=== PATIENT | male | born 1945 | race Two or more races ===

== ENCOUNTER 2024-10-26 21:49 | Emergency (ER) | payer OTHER ==
[~2024-10-26] VITALS: Ht 188 cm; Wt 77.0 kg
--- NOTE | 2024-10-26 22:06 | ED.PDOC ---
History of Present Illness HPI Comments 79-year-old male who came to ER via EMS for dizziness. Per EMS, patient was picked up at home, were in family members noted the patient to be acting confused and dizzy earlier. Upon arrival of paramedics, blood pressure 92/66 mm Hg, appeared pale and dizzy. Patient claims that he feels okay, denies being dizzy or confused, but admits that he is a daily alcohol drinker (whiskey). Blood sugar on scene was 165. Chief Complaint: Dizziness Time Seen by MD: 22:05 Reviewed Notes: Nurses Notes Allergies: Coded Allergies: NO KNOWN ALLERGIES (Unverified , 10/26/24) Information Source: Patient Mode of Arrival: EMS Severity: Moderate Timing: Hours Duration: Intermittent Prehospital treatment: None Past Medical History PAST MEDICAL HISTORY: COPD, High Lipids Surgical History: Denies all surgeries Family History Family History: Reviewed,noncontributory to illness Social History Smoker: Non-Smoker Alcohol: Heavy Drugs: Denies Drug Use Lives In: Home Constitutional: denies: chills, diaphoresis, fatigue, fever, malaise, sweats, weakness, others EENTM: denies: blurred vision, double vision, ear bleeding, ear discharge, ear drainage, ear pain, ear ringing, eye pain, eye redness, hearing loss, mouth pain, mouth swelling, nasal discharge, nose bleeding, nose congestion, nose pain, photophobia, tearing, throat pain, throat swelling, voice changes, others Respiratory: denies: cough, hemoptysis, orthopnea, SOB at rest, shortness of breath, SOB with excertion, stridor, wheezing, others Cardiovascular: denies: chest pain, dizzy spells, diaphoresis, Dyspnea on exertion, edema, irregular heart beat, left arm pain, lightheadedness, palpitations, PND, syncope, others Gastrointestinal: denies: abdomen distended, abdominal pain, blood streaked bowels, constipated, diarrhea, dysphagia, difficulty swallowing, hematemesis, melena, nausea, poor appetite, poor fluid intake, rectal bleeding, rectal pain, vomiting, others Genitourinary: denies: burning, dysuria, flank pain, frequency, hematuria, incontinence, penile discharge, penile sore, pain, testicle pain, testicle swelling, urgency, others Neurological: denies: dizziness, fainting, headache, left sided numbness, left sided weakness, numbness, paresthesia, pre-existing deficit, right sided numbness, right sided weakness, seizure, speech problems, tingling, tremors, weakness, others Musculoskeletal: denies: back pain, gout, joint pain, joint swelling, muscle pain, muscle stiffness, neck pain, others Integumetry: denies: bruises, change in color, change in hair/nails, dryness, laceration, lesions, lumps, rash, wounds, others Allergic/Immunocompromised: denies: Difficulty Healing, Frequent Infections, Hives, Itching, others Hematologic/Lymphatic: denies: anemia, blood clots, easy bleeding, easy bruising, swollen glands, others Endocrine: denies: excessive hunger, excessive sweating, excessive thirst, excessive urination, flushing, intolerance to cold, intolerance to heat, un explained weight gain, unexplained weight loss, others Psychiatric: denies: anxiety, bipolar disorder, depression, hopeless, panic disorder, schizophrenia, sleepless, suicidal, others Physical Exam General Appearance: No Apparent Distress, Normal HEENT: Normal ENT Inspection, Pharynx Normal, TMs Normal Neck: Full Range of Motion, Non-Tender, Normal, Normal Inspection Respiratory: Chest Non-Tender, Lungs Clear, No Accessory Muscle Use, No Respiratory Distress, Normal Breath Sounds Cardiovascular: No Edema, No JVD, No Murmur, No Gallop, Normal Peripheral Pulses, Regular Rate/Rhythm Breast Exam: Deferred Gastrointestinal: No Organomegaly, Non Tender, No Pulsatile Mass, Normal Bowel Sounds, Soft Genitalia: Deferred Pelvic: Deferred Rectal: Deferred Extremities: No calf tenderness, Normal capillary refill, Normal inspection, Normal range of motion, Non-tender, No pedal edema Musculoskeletal : Apperance: Normal Neurologic: Alert, teacher lip reading II-XII nml as Tested, No Motor Deficits, Normal Affect, Normal Mood, No Sensory Deficits Cerebellar Function: Normal Reflexes: Normal Skin: Dry, Normal Color, Warm Lymphatic: No Adenopathy Was a procedure done? Was a procedure done?: No Differential Dx Considerations may include: Anemia, electrolyte imbalance, encephalopathy, COPD, hypotension X-Ray, Labs, Meds, VS Vital Signs Date Time Temp Pulse Resp B/P (MAP) Pulse Ox O2 Delivery O2 Flow Rate FiO2 10/26/24 22:29 94 16 120/69 (86) 96 11/28/24 21:59 97.7 97 18 108/68 (81) 93 Lab Test 10/26/24 22:02 Range/Units White Blood Count 4.8 4.4-10.8 10^3/uL Red Blood Count 4.34 L 4.5-5.90 10^6/uL Hemoglobin 16.5 13.5-17.5 g/dL Hematocrit 47.4 41.0-53.0 % Mean Corpuscular Volume 109.1 H 80.0-100.0 fL Mean Corpuscular Hemoglobin 37.9 H 28.0-32.0 pg Mean Corpuscular Hemoglobin Concent 34.7 32.0-36.0 g/dL Red Cell Distribution Width 14.5 H 11.8-14.3 % Platelet Count 177 140-450 10^3/uL Mean Platelet Volume 7.5 6.9-10.8 fL Neutrophils (%) (Auto) 41.5 37.0-80.0 % Lymphocytes (%) (Auto) 44.9 10.0-50.0 % Monocytes (%) (Auto) 8.2 0.0-12.0 % Eosinophils (%) (Auto) 3.9 0.0-7.0 % Basophils (%) (Auto) 1.5 0.0-2.0 % Neutrophils # (Auto) 2.0 1.6-8.6 10 ^3/uL Lymphocytes # (Auto) 2.1 0.4-5.4 10 ^3/uL Monocytes # (Auto) 0.4 0-1.3 10 ^3/uL Eosinophils # (Auto) 0.2 0-0.8 10 ^3/uL Basophils # (Auto) 0.1 0-0.2 10 ^3/uL Nucleated Red Blood Cells 0.1 % Sodium Level 141 136-145 mmol/L Potassium Level 3.8 3.5-5.1 mmol/L Chloride Level 104 98-107 mmol/L Carbon Dioxide Level 26 20-31 mmol/L Anion Gap 11 5-15 Blood Urea Nitrogen 14 9-23 mg/dL Creatinine 1.26 0.700-1.30 mg/dL Glomerular Filtration Rate Calc 58 >90 mL/min BUN/Creatinine Ratio 11.1 10.0-20.0 Serum Glucose 126 H 74-106 mg/dL Lactic Acid Level 3.0 *H 0.4-2.0 mmol/L Calcium Level 9.4 8.7-10.4 mg/dL Magnesium Level 1.5 L 1.6-2.6 mg/dL Total Bilirubin 1.1 H 0.2-1.0 mg/dL Aspartate Amino Transferase (AST) 101 H 13-40 U/L Alanine Aminotransferase (ALT) 72 H 7-40 U/L Alkaline Phosphatase 181 H 46-116 U/L Troponin I High Sensitivity 6 </=54 ng/L Total Protein 6.9 5.7-8.2 g/dL Albumin 4.0 3.2-4.8 g/dL Plasma/Serum Blood Alcohol 240.7 H <10 mg/dL Current Medications Medications (Trade) Dose Ordered Sig/Tong Route Start Time Stop Time Status Last Admin Sodium Chloride 500 ml @ 500 mls/hr Q1H ONCE IVB 10/26/24 22:00 10/26/24 22:59 DC 10/26/24 22:20 Piperacillin Sod/ Tazobactam Sod 100 ml @ 100 mls/hr ONCE ONCE IV 10/26/24 23:00 10/26/24 23:59 10/26/24 23:18 Time of 1ST Reevaluation: 21:59 Reevaluation 1ST: Unchanged Time of 2ND Reevaluation: 22:58 Reevaluation 2ND: Unchanged Consultation: Other (I discussed the case with [facility] Dr [facility] who will transfer for inpatient care and further workup. Auth# [id number]) Patient Education/Counseling: Diagnosis, Treatment Family Education/Counseling: Diagnosis, Treatment, No Family Present Departure 1 Departure Time of Disposition: 22:58 (I discussed the case with [facility] Dr [facility] who will transfer for inpatient care and further workup. Auth# [id number]) Impression: Primary Impression: Alcohol abuse Additional Impressions: Altered mental status Near syncope Disposition: ADMITTED INPATIENT Admit to: Med Surg Condition: Guarded Critical Care Note Critical Care Time?: Yes (35 min-critical care time only) Critical care comment: Total critical care time: Approximately 36 minutes Due to a high probability of clinically significant, life threatening deterioration, the patient required my highest level of preparedness to intervene emergently and I personally spent this critical care time directly and personally managing the patient. This critical care time included obtaining a history; examining the patient; pulse oximetry; ordering and review of studies; arranging urgent treatment with development of a management plan; evaluation of patient's response to treatment; frequent reassessment; and, discussions with other providers. Stability Stability form required: No Heart Score Heart Score: Heart Score Response (Comments) Value History Slightly Suspicious 0 EKG Repolarization Disturb 1 Age >65 2 Risk Factors 1 or 2 risk factors 1 Troponin Normal limit 0 Total 4 I personally scribed for DARYL SALES MD ([email or web address]) on 10/26/24 at 22:06. Electronically submitted by Guido aHrtley ([facility] I personally scribed for DARYL SALES MD ([email or web address]) on 10/26/24 at 22:19. Electronically submitted by Guido Hartley ([facility]). DARYL SALES MD Oct 26, 2024 22:06
[2024-10-26] MEDS: SODIUM CHLORIDE 0.9% 500 ML IVB ONE (22:20)
[2024-10-26 22:21] LABS: Basophils # (auto) 0.1 10 ^3/uL (0-0.2); Eosinophils # (auto) 0.2 10 ^3/uL (0-0.8); Hemoglobin 16.5 g/dL (13.5-17.5); Lymphocytes # (auto) 2.1 10 ^3/uL (0.4-5.4); Monocytes # (auto) 0.4 10 ^3/uL (0-1.3); Nucleated Red Blood Cells % 0.1 %; Red Cell Distribution Width 14.5 % (11.8-14.3)
[2024-10-26 22:23] LABS: Basophils % (auto) 1.5 % (0.0-2.0); Eosinophils % (auto) 3.9 % (0.0-7.0); Hematocrit 47.4 % (41.0-53.0); Lymphocytes % (auto) 44.9 % (10.0-50.0); Mean Corpuscular Hemoglobin 37.9 pg (28.0-32.0); Mean Corpuscular Hgb Conc. 34.7 g/dL (32.0-36.0); Mean Corpuscular Volume 109.1 fL (80.0-100.0); Monocytes % (auto) 8.2 % (0.0-12.0); Neutrophils % (auto) 41.5 % (37.0-80.0); Platelet Count (auto) 177 10^3/uL (140-450); Red Blood Cells 4.34 10^6/uL (4.5-5.90); White Blood Cell 4.8 10^3/uL (4.4-10.8)
[2024-10-26 22:37] LABS: Anion Gap 11 (5-15); BUN/Creatinine Ratio 11.1 (10.0-20.0); Blood Alcohol 240.7 mg/dL (<10); Blood Urea Nitrogen 14 mg/dL (9-23); Calcium 9.4 mg/dL (8.7-10.4); Carbon Dioxide 26 mmol/L (20-31); Chloride 104 mmol/L (98-107); Potassium 3.8 mmol/L (3.5-5.1); Sodium 141 mmol/L (136-145)
[2024-10-26 22:38] LABS: Bilirubin, Total 1.1 mg/dL (0.2-1.0); Total Protein 6.9 g/dL (5.7-8.2)
[2024-10-26 22:39] LABS: Alanine Aminotransferase 72 U/L (7-40); Alkaline Phosphatase 181 U/L (46-116); Aspartate Aminotransferase 101 U/L (13-40); Glucose 126 mg/dL (74-106); Magnesium 1.5 mg/dL (1.6-2.6)
--- NOTE | 2024-10-26 22:42 | DVH ---
CT HEAD WITHOUT CONTRAST INDICATION: ALOC EXAM DATE: 10/26/2024 10:14 PM COMPARISON: None RADIATION DOSE: CTDIvol: 55 mGy, DLP: 987 mGy*cm PROCEDURE: CT scans of the head were obtained from the vertex to the skull base. Sagittal and coronal reconstructions were provided. All CT scans at this medical facility are performed using dose modulation techniques as appropriate t o a performed exam including the following: Automated exposure control was utilized; adjustment of th e MA and/or KV according to patient size; and use of iterative reconstruction technique. FINDINGS: There is sulcal and ventricular prominence. The brainshows normal morphology and gallagher-whi te matter differentiation, without intracranial hemorrhage, extra-axial fluid collection, mass effect or acute large vessel infarct. The ventricles are normal in size. The basal cisterns are patent. The skull and visible facial bones are intact. The paranasal sinuses, mastoid air cells and middle ear c avities are well-aerated. The soft tissues of the scalp are unremarkable. IMPRESSION: No acute intracranial abnormality. 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
--- NOTE | 2024-10-26 22:43 | DVH ---
CHEST RADIOGRAPH Indication: weakness Technique: Single frontal view of the chest was obtained Comparison: None FINDINGS: Lines and Tubes: None Lungs: Clear Pleura: No effusion. No pneumothorax. Cardiomediastinal contours: Unremarkable Bones: Unremarkable IMPRESSION: 1. Clear lungs.
[2024-10-26] MEDS: PIPERACILLIN-TAZOB 3.375GM 100 ML IV ONE (23:18)
[2024-10-27] MEDS: SODIUM CHLORIDE 0.9% 1,000 ML IV ONE (01:00)
[2024-10-27 01:56] VITALS: PULSE 87; RESP 15; O2SAT 99
[2024-10-27 04:15] VITALS: BP 128/80; PULSE 95; RESP 15; TEMP 98.3; O2SAT 97
[2024-10-27 04:59] LABS: Urine Bacteria None Seen /hpf (None Seen)
[2024-10-27 05:13] LABS: Urine Blood Negative /uL (Negative); Urine Clarity Clear (Clear); Urine Color Yellow (Yellow); Urine Hyaline Cast MOD /lpf (0 - 2); Urine Mucus FEW (None Seen); Urine Protein, UAD Negative (Negative); Urine Specific Gravity 1.015 (1.001-1.035); Urine Urobilinogen 2 mg/dL (Negative); Urine WBC 3 /hpf (0 - 3); Urine pH 5.5 (5.0-9.0)
[2024-10-27 05:23] LABS: Amphetamine Screen, Urine Neg (NEGATIVE)
[2024-10-27 05:25] LABS: Cannabinoid Screen, Urine Neg (NEGATIVE)
[2024-10-27 05:27] LABS: Barbiturate Scree,Urine Neg (NEGATIVE); Benzodiazephine Screen, Urine Neg (NEGATIVE); Cocaine Screen, Urine Neg (NEGATIVE); Opiate Scree,Urine Neg (NEGATIVE); Phencyclidine Screen, Urine Neg (NEGATIVE)
--- NOTE | 2024-10-30 15:28 | ECG ---
[facility] Test Date: 2024-10-26 Test Time: 21:54:48 Pat Name: ZANE SINGH Department: ER Room: Gender: M Snowboarding Instructor: SHEILA : 1945 Requested By: DARYL SALES Order Number: [id number] Reading MD: Gian Charles Measurements Intervals [place] Rate: 94 P: 38 OH: 209 QRS: 25 QRSD: 85 T: 64 QT: 388 QTc: 486 Interpretive Statements Sinus rhythm Borderline prolonged OH interval Low voltage, extremity and precordial leads Abnormal R-wave progression, early transition Borderline prolonged QT interval Electronically Signed On 11-01-2024 13:35:56 PST by Gian Charles Please click the below link to view image of tracing.
== END 2024-10-27 04:52 | disposition short-term general hospital (02) ==
LOC: ER 21:49 → EDBD 21:49 → ER 23:22
DX: R41.82 Altered mental status, unspecified (principal); F10.10 Alcohol abuse, uncomplicated; R55 Syncope and collapse; E78.5 Hyperlipidemia, unspecified; J44.9 Chronic obstructive pulmonary disease, unspecified
CPT/HCPCS: 36415; 70450; 71045; 80053; 80307; 80320; 81001; 82962; 83605; 83735; 84484; 85025; 87040; 93005; 96365; 96366; 99285; J2543